=== PATIENT | female | born 1975 | race Caucasian/White ===

== ENCOUNTER 2019-07-09 05:29 | Emergency (ER) | payer MEDICAID ==
[~2019-07-09] VITALS: Ht 162.6 cm; Wt 68.0 kg
--- NOTE | 2019-07-09 05:50 | NUR ---
Patient arrive at the ER with chief complaint of RLQ abdominal pain that started last night but woke with severe pain 3hrs ago. Patient AOX4. Denies N/V and diarrhea. No cardiovascular concern. Respiration even and unlabored.
[2019-07-09] MEDS ORDERED: LEVO150T PO (05:51)
--- NOTE | 2019-07-09 06:25 | NUR ---
Urine specimen sent to lab.
--- NOTE | 2019-07-09 06:28 | NUR ---
Dr. Vazquez on bedside for MSE.
[2019-07-09 06:31] LABS: *BILIRUBIN,URIN NEGATIVE (NEGATIVE); *CLARITY,URINE CLEAR (CLEAR); *COLOR,URINE YELLOW (YELLOW); *KETONES,URINE NEGATIVE (NEGATIVE); *UROBILINOGEN,URINE 0.2 E.U./dl (NORMAL); LEUKOCYTE ESTERASE ,URINE NEGATIVE (NEGATIVE); NITRITE, URINE NEGATIVE (NEGATIVE); PH,URINE 5.5 (5.0-8.0); UGLUCOSE NEGATIVE (NEGATIVE)
[2019-07-09 06:32] LABS: *BLOOD, URINE TRACE LYSED (NEGATIVE); *URINE HCG, QUAL NEGATIVE (NEGATIVE)
[2019-07-09 06:54] LABS: BACTERIA,URINE NONE SEEN /HPF (NONE SEEN); RBC,URINE 0-3 /HPF (0-3); SQUAMOUS EPITHELIAL CELL,UR NONE SEEN /HPF (NONE SEEN); WBC,URINE 0-3 /HPF (0-3)
--- NOTE | 2019-07-09 06:59 | NUR ---
Dr Vazquez on bedside.
--- NOTE | 2019-07-09 07:00 | NUR ---
Patient discharged to home in stable conditon. Written and verbal after care instructions given. Patient verbalizes understanding of instructions. Pt ambulated out of the ER with steady gait. All belongings with pt.
[2019-07-09 07:03] VITALS: BP 120/81
== END 2019-07-09 07:04 | disposition home or self-care (01) ==
LOC: ER 05:37
DX: R10.11 Right upper quadrant pain (principal); R10.12 Left upper quadrant pain; E03.9 Hypothyroidism, unspecified; Z79.899 Other long term (current) drug therapy
CPT/HCPCS: 84703; A4663